=== PATIENT | female | born 2000 | race Caucasian/White ===

== ENCOUNTER 2024-06-21 08:27 | Emergency (ER) | payer BC ==
[2024-06-21] MEDS ORDERED: KETOROLAC 30 MG/ML INJ ONE (08:46)
[2024-06-21] MEDS ORDERED: ONDANSETRON 4 MG/2 ML VIAL ONE (08:46)
[2024-06-21] MEDS ORDERED: NA CHLORIDE 0.9% 1,000 ML ONE (08:46)
--- NOTE | 2024-06-21 09:08 | RAD REPORT ---
EXAM DESCRIPTION: CT - Head Brain Wo Cont - 06/21/2024 8:52 am CLINICAL HISTORY: headache after dental work;Headache COMPARISON: Facial Bones W Con Mpr dated 06/21/2024 TECHNIQUE: All CT scans are performed using dose optimization technique as appropriate and may inclu de automated exposure control or mA/KV adjustment according to patient size. FINDINGS: No intracranial hemorrhage, hydrocephalus or extra-axial fluid collection.No areas of brai n edema or evidence of midline shift. The paranasal sinuses and mastoids are clear. The calvarium is intact. IMPRESSION: No acute intracranial abnormality.
--- NOTE | 2024-06-21 09:10 | RAD REPORT ---
EXAM DESCRIPTION: CT - CTFBWCON CLINICAL HISTORY: right molar surgery not with post op pain;Pain COMPARISON: No comparisons TECHNIQUE: Axial 2 mm thick images of the face were obtained with sagittal and coronal reconstructio n images. All CT scans are performed using dose optimization technique as appropriate and may include automated exposure control or mA/KV adjustment according to patient size. FINDINGS: No acute facial bone fracture is seen.The mandible is intact. The globes and orbital contents are grossly unremarkable.Trace right maxillary sinus mucosal thickeni ng. Question recent tooth extraction of the right mandibular and maxillary third molar. No complicati ng features. IMPRESSION: No acute soft tissue abnormality identified. No abscess.
[2024-06-21 09:12] LABS: Absolute Basophils 0.1 K/uL (0-0.5); Absolute Eosinophils 0.1 K/uL (0-0.5); Absolute Lymphocytes (CBC) 3.9 K/uL (0.7-4.9); Absolute Monocytes 0.8 K/uL (0.1-1.3); Absolute Neutrophil 9.3 K/uL (1.8-8.0); Basophils % 0.4 % (0-1.3); Eosinophils % 0.5 % (0-4.4); Hematocrit 37.9 % (36.0-45.0); Hemoglobin 12.6 g/dL (12.0-15.0); Lymphocytes % 27.5 % (15.3-44.8); MCH 29.9 pg (27.0-35.0); MCHC 33.3 g/dL (32.0-36.0); MPV 8.3 fL (7.6-11.3); Monocytes % 5.8 % (3.3-12.3); Neutrophils % 65.8 % (41.7-73.7); Platelets 258 thou/uL (152-406); RBC Red Blood Cell Count 4.21 M/uL (3.86-4.86); Red Cell Distribution Width 12.9 % (12.1-15.2)
[2024-06-21 09:27] LABS: Albumin 3.9 g/dL (3.4-5.0); Albumin/Globulin Ratio 1.2 (1.1-1.8); Anion Gap 7.4 mEq/L (5.0-15.0); Bilirubin Total 0.2 mg/dL (0.2-1.0); Globulin 3.2 g/dL (2.3-3.5); Potassium 3.4 mEq/L (3.5-5.1); Protein, Total 7.1 g/dL (6.4-8.2)
[2024-06-21] MEDS ORDERED: AMPICILLIN/SULBACTAM 3GM/VIAL ONE (09:39)
[2024-06-21] MEDS ORDERED: NA CHLORIDE 0.9% 100 ML ONE (09:39)
--- NOTE | 2024-06-21 09:44 | EDPHYS ---
Physician Documentation [facility] Name: Ting Burrell Age: 23 yrs Sex: Female : 2000 Arrival Date: 06/21/2024 Time: 08:27 Bed 17 Private MD: ED Physician Kay Sanchez HPI: 06/21 08:54 This 23 yrs old Female presents to ER via Ambulatory with complaints of Headache, sp3 Vomiting. 08:54 23-year-old female with history of anxiety presents to the ED with chief complaint sp3 dental pain, vomiting and headache for the last 48 hours. Patient had 4 days ago with some teeth extraction on the right side upper and lower. She was doing fine over the weekend but on Thursday night/Thursday morning her symptoms began consisting of headache from the jaw extending into the head as well as vomiting. She has been unable to take her medications due to the vomiting. She denies any bleeding, coffee-ground emesis or other symptoms. Review of systems otherwise negative.. Historical: - Allergies: 08:44 No Known Allergies; ap3 - Home Meds: 08:44 Lexapro Oral for anxiety with depression [Active]; ap3 - PMHx: 08:44 Anxiety; ap3 - Immunization history:: Client reports having NOT received the Covid vaccine. - Social history:: Smoking status: Reported history of juuling and/or vaping. Patient uses street drugs, marijuana. ROS: 08:55 Constitutional: Negative for fever, chills, and weight loss, Eyes: Negative for injury, sp3 pain, redness, and discharge, Neck: Negative for injury, pain, and swelling, Cardiovascular: Negative for chest pain, palpitations, and edema, Respiratory: Negative for shortness of breath, cough, wheezing, and pleuritic chest pain, Abdomen/GI: Negative for abdominal pain, nausea, vomiting, diarrhea, and constipation, Back: Negative for injury and pain, MS/Extremity: Negative for injury and deformity, Skin: Negative for injury, rash, and discoloration, Psych: Negative for depression, anxiety, suicide ideation, homicidal ideation, and hallucinations, Allergy/Immunology: Negative for hives, rash, and allergies, Endocrine: Negative for neck swelling, polydipsia, polyuria, polyphagia, and marked weight changes, Hematologic/Lymphatic: Negative for swollen nodes, abnormal bleeding, and unusual bruising, 08:55 All other systems are negative, Exam: 08:55 Constitutional: This is a well developed, well nourished patient who is awake, alert, sp3 and in no acute distress. Head/Face: Normocephalic, atraumatic. Eyes: Pupils equal round and reactive to light, extra-ocular motions intact. Lids and lashes normal. Conjunctiva and sclera are non-icteric and not injected. Cornea within normal limits. Periorbital areas with no swelling, redness, or edema. Neck: Trachea midline, no thyromegaly or masses palpated, and no cervical lymphadenopathy. Supple, full range of motion without nuchal rigidity, or vertebral point tenderness. No Meningismus. Chest/axilla: Normal chest wall appearance and motion. Nontender with no deformity. No lesions are appreciated. Cardiovascular: Regular rate and rhythm with a normal S1 and S2. No gallops, murmurs, or rubs. Normal PMI, no JVD. No pulse deficits. Respiratory: Lungs have equal breath sounds bilaterally, clear to auscultation and percussion. No rales, rhonchi or wheezes noted. No increased work of breathing, no retractions or nasal flaring. Abdomen/GI: Soft, non-tender, with normal bowel sounds. No distension or tympany. No guarding or rebound. No evidence of tenderness throughout. Back: No spinal tenderness. No costovertebral tenderness. Full range of motion. Skin: Warm, dry with normal turgor. Normal color with no rashes, no lesions, and no evidence of cellulitis. MS/ Extremity: Pulses equal, no cyanosis. Neurovascular intact. Full, normal range of motion. Neuro: Awake and alert, GCS 15, oriented to person, place, time, and situation. Cranial nerves II-XII grossly intact. Motor strength 5/5 in all extremities. Sensory grossly intact. Cerebellar exam normal. Normal gait. Psych: Awake, alert, with orientation to person, place and time. Behavior, mood, and affect are within normal limits. 08:55 ENT: Mouth without bleeding or other complication.. Vital Signs: 08:40 BP 140 / 55; Pulse 53; Resp 17; Temp 97.7(O); Pulse Ox 100% ; Weight 74.84 kg; Height 5 ap3 ft. 8 in. ; Pain 7/10; 09:47 BP 101 / 71; Pulse 60; Resp 16 S; Pulse Ox 96% on R/A; kc6 08:40 Body Mass Index 25.09 (74.84 kg, 172.72 cm) ap3 08:40 Pain Scale: Adult ap3 MDM: 08:32 Patient medically screened. sp3 09:42 Data reviewed: vital signs, nurses notes. ED course: 23-year-old female with headache sp3 and dental pain post surgery. Differential diagnosis includes dental infection, procedure induced headache, nonspecific headache, among others. CT scan of the head and face demonstrate no abnormality, abscess, or fluid pocket. Labs are within normal limits except for mild leukocytosis of 14,000. Since patient missed antibiotic doses, will administer Unasyn IV. Patient is improved after ketorolac and ondansetron IV. P.o. challenge pending. Patient will be discharged subsequent to this with follow-up to her oral surgeon.. 06/21 08:44 Order name: CBC with Diff; Complete Time: 09:28 sp3 06/21 08:44 Order name: CMP; Complete Time: 09:28 sp3 06/21 08:44 Order name: CT Head Brain wo Cont; Complete Time: 09:14 sp3 06/21 09:10 Order name: CT; Complete Time: 09:14 EDMS 06/21 08:44 Order name: IV Saline Lock; Complete Time: 09:04 sp3 06/21 08:44 Order name: Labs collected and sent; Complete Time: 09:04 sp3 06/21 08:44 Order name: NPO; Complete Time: 08:44 sp3 06/21 09:29 Order name: PO challenge; Complete Time: 09:31 sp3 Administered Medications: 09:00 Drug: TORadol - Ketorolac IVP 15 mg IVP once Route: IVP; Site: right antecubital; kc6 09:31 Follow up: Response: No adverse reaction; Pain is decreased kc6 09:00 Drug: Ondansetron IVP 4 mg IVP once; over 2 minutes Route: IVP; Site: right antecubital;kc6 09:31 Follow up: Response: No adverse reaction; Nausea is decreased; Vomiting decreased kc6 09:06 Drug: NS 0.9% IV 1000 ml IV at 1 bolus Per protocol; 1000 mL bolus Route: IV; Rate: 1 kc6 bolus; Site: right antecubital; 10:23 Follow up: Response: No adverse reaction; IV Status: Completed infusion; IV Intake: kc6 1000ml 09:46 Drug: Ampicillin-Sulbactam Sodium IVPB 3 grams IVPB once over 30 mins; (mix in 100 mL kc6 NS) Route: IVPB; Infused Over: 30 mins; Site: right antecubital; 10:04 Follow up: Response: No adverse reaction; IV Status: Completed infusion; IV Intake: kc6 100ml Disposition Summary: 06/21/24 09:43 Discharge Ordered Notes: Location: Home sp3 Condition: Stable sp3 Diagnosis - Nausea, post surgical pain sp3 Followup: sp3 - With: Private Physician - When: Upon discharge from the Emergency Department - Reason: Continuance of care Discharge Instructions: - Discharge Summary Sheet sp3 - Dental Extraction, Care After sp3 Forms: - Medication Reconciliation Form sp3 - Antibiotic Education sp3 - Prescription Opioid Use sp3 - Patient Portal Instructions sp3 - Leadership Thank You Letter sp3 Prescriptions: - ondansetron 8 mg Oral Tablet,disintegrating - take 1 tablet ORAL route every 12 hours; 20 tablet; Refills: 0, Product sp3 Selection Permitted Signatures: Dispatcher [employer] Alyson Bullock RN RN ap3 Kay Sanchez MD MD sp3 Silvia Barber RN RN kc6 Corrections: (The following items were deleted from the chart) 08:44 08:44 Facial Bones W/ Con \T\ [id number] ordered. EDMS EDMS
--- NOTE | 2024-06-21 09:44 | ER ---
Nurse's Notes [facility] Name: Ting Burrell Age: 23 yrs Sex: Female : 2000 Arrival Date: 06/21/2024 Time: 08:27 Bed 17 Private MD: Diagnosis: Nausea, post surgical pain Presentation: 06/21 08:40 Chief complaint: Patient states: she started having a headache yesterday and vomited ap3 this morning. patient reports having teeth extracted last Thursday. patient reports her headache is in the front of her head and rates her headache as a 7/10 on the pain scale at this time. Coronavirus screen: At this time, the client does not indicate any symptoms associated with coronavirus-19. Ebola Screen: No symptoms or risks identified at this time. Initial Sepsis Screen: Does the patient meet any 2 criteria? No. Patient's initial sepsis screen is negative. Does the patient have a suspected source of infection? No. Patient's initial sepsis screen is negative. Risk Assessment: Do you want to hurt yourself or someone else? Patient reports no desire to harm self or others. Onset of symptoms was June 20, 2024. 08:40 Method Of Arrival: Ambulatory ap3 08:40 Acuity: EMILY 3 ap3 Triage Assessment: 08:45 Headache History: The patient has had previous headaches. General: Appears in no ap3 apparent distress. Behavior is calm, cooperative, appropriate for age. Pain: Complains of pain in forehead Pain currently is 7 out of 10 on a pain scale. Pain began 1 day ago. Also complains of nausea. Neuro: Level of Consciousness is awake, alert, obeys commands, Oriented to person, place, time, situation, Appropriate for age Gait is steady, Speech is normal. Cardiovascular: Patient's skin is warm and dry. Respiratory: Airway is patent. GI: Reports nausea, vomiting. Historical: - Allergies: 08:44 No Known Allergies; ap3 - Home Meds: 08:44 Lexapro Oral for anxiety with depression [Active]; ap3 - PMHx: 08:44 Anxiety; ap3 - Immunization history:: Client reports having NOT received the Covid vaccine. - Social history:: Smoking status: Reported history of juuling and/or vaping. Patient uses street drugs, marijuana. Screenin:42 [facility] ED Fall Risk Assessment (Adult) History of falling in the last 3 months, kc6 including since admission No falls in past 3 months (0 pts) Confusion or Disorientation No (0 pts) Intoxicated or Sedated No (0 pts) Impaired Gait No (0 pts) Mobility Assist Device Used No (0 pt) Altered Elimination No (0 pt) Score/Fall Risk Level 0 - 2 = Low Risk. Abuse screen: Denies threats or abuse. Denies injuries from another. Nutritional screening: No deficits noted. Tuberculosis screening: No symptoms or risk factors identified. Assessment: 08:50 General: Appears in no apparent distress. uncomfortable, well groomed, well developed, kc6 Behavior is calm, cooperative, appropriate for age. Neuro: Level of Consciousness is awake, alert, obeys commands, Oriented to person, place, time, situation, Appropriate for age Reports headache frontal area. Cardiovascular: Capillary refill < 3 seconds. Respiratory: Airway is patent Trachea midline Respiratory effort is even, unlabored, Respiratory pattern is regular, symmetrical. GI: Pt is actively vomiting clear fluid, Reports nausea, vomiting, Patient currently denies abdominal pain, diarrhea. : No signs and/or symptoms were reported regarding the genitourinary system. EENT: No signs and/or symptoms were reported regarding the EENT system. Derm: No signs and/or symptoms reported regarding the dermatologic system. Skin is intact, is healthy with good turgor, Skin is pink, warm \T\ dry. Musculoskeletal: No signs and/or symptoms reported regarding the musculoskeletal system. Circulation, motion, and sensation intact. Capillary refill < 3 seconds, Range of motion: intact in all extremities. 08:55 Reassessment: Kajal from CT called and states pt is actively vomiting. IV started and kc6 medications administered in CT. 09:47 Reassessment: Patient appears in no apparent distress at this time. No changes from kc6 previously documented assessment. Patient and/or family updated on plan of care and expected duration. Pain level reassessed. Patient is alert, oriented x 3, equal unlabored respirations, skin warm/dry/pink. Patient states feeling better. Patient states symptoms have improved. 09:47 Reassessment: d/c pending completion of IV antibiotics. kc6 Vital Signs: 08:40 BP 140 / 55; Pulse 53; Resp 17; Temp 97.7(O); Pulse Ox 100% ; Weight 74.84 kg; Height 5 ap3 ft. 8 in. ; Pain 7/10; 09:47 BP 101 / 71; Pulse 60; Resp 16 S; Pulse Ox 96% on R/A; kc6 08:40 Body Mass Index 25.09 (74.84 kg, 172.72 cm) ap3 08:40 Pain Scale: Adult ap3 ED Course: 08:31 Patient arrived in ED. mg5 08:32 Kay Sanchez MD is Attending Physician. sp3 08:37 Silvia Barber RN is Primary Nurse. kc6 08:42 Patient has correct armband on for positive identification. Bed in low position. Call kc6 light in reach. Side rails up X 1. Adult w/ patient. Pulse ox on. NIBP on. Door closed. Noise minimized. Lights dimmed. Warm blanket given. Pillow given. 08:44 Triage completed. ap3 08:46 Arm band placed on right wrist. ap3 08:54 CT Head Brain wo Cont In Process Unspecified. EDMS 09:00 Inserted saline lock: 20 gauge in right antecubital area, using aseptic technique. kc6 Blood collected. Flushed with 10 mL NS. 09:47 Diet: Patient given water. Tolerated well. kc6 10:24 No provider procedures requiring assistance completed. IV discontinued, intact, kc6 bleeding controlled, No redness/swelling at site. Pressure dressing applied. Administered Medications: 09:00 Drug: TORadol - Ketorolac IVP 15 mg IVP once Route: IVP; Site: right antecubital; kc6 09:31 Follow up: Response: No adverse reaction; Pain is decreased kc6 09:00 Drug: Ondansetron IVP 4 mg IVP once; over 2 minutes Route: IVP; Site: right antecubital;kc6 09:31 Follow up: Response: No adverse reaction; Nausea is decreased; Vomiting decreased kc6 09:06 Drug: NS 0.9% IV 1000 ml IV at 1 bolus Per protocol; 1000 mL bolus Route: IV; Rate: 1 kc6 bolus; Site: right antecubital; 10:23 Follow up: Response: No adverse reaction; IV Status: Completed infusion; IV Intake: kc6 1000ml 09:46 Drug: Ampicillin-Sulbactam Sodium IVPB 3 grams IVPB once over 30 mins; (mix in 100 mL kc6 NS) Route: IVPB; Infused Over: 30 mins; Site: right antecubital; 10:04 Follow up: Response: No adverse reaction; IV Status: Completed infusion; IV Intake: kc6 100ml Medication: 10:24 VIS not applicable for this client. kc6 Intake: 10:04 IV: 100ml; Total: 100ml. kc6 10:23 IV: 1000ml; Total: 1100ml. kc6 Outcome: 09:43 Discharge ordered by . sp3 10:24 Discharged to home ambulatory, kc6 10:24 Condition: improved 10:24 Discharge instructions given to patient, Instructed on discharge instructions, follow up and referral plans. medication usage, Demonstrated understanding of instructions, follow-up care, medications, Prescriptions given X 1, 10:24 Patient left the ED. kc6 Signatures: Dispatcher [employer] Alyson Bullock RN RN [id number] Kay Sanchez MD MD sp3 Silvia Barber RN RN kc6 Dalia Carty [facility] [place]
[2024-06-21 10:40] VITALS: TEMP 97.7
[2024-06-21 10:50] VITALS: BP 101/71; O2SAT 96
== END 2024-06-21 10:24 | disposition home or self-care (01) ==
LOC: ER 08:27
DX: G89.18 Other acute postprocedural pain (principal); Z98.818 Other dental procedure status
CPT/HCPCS: 85025; 36415; 80053; 70450; 70487; 76377; Q9967; J0295; J2405; J7030